=== PATIENT | female | born 1955 | race Caucasian/White ===

== ENCOUNTER 2022-03-22 20:14 | Outpatient (CLI) | payer OTHER | END 2022-03-22 23:59 | disposition critical access hospital (66) | LOC: EMS 20:14 | DX: M25.512 Pain in left shoulder (principal); M79.622 Pain in left upper arm; S00.31XA Abrasion of nose, initial encounter; S00.83XA Contusion of other part of head, initial encounter; W10.8XXA Fall (on) (from) other stairs and steps, initial encounter; Y92.008 Other place in unspecified non-institutional (private) residence as the place of occurrence of the external cause | CPT/HCPCS: A0425; A0429 ==

== ENCOUNTER 2022-03-22 20:28 | Emergency (ER) | payer MEDICARE, OTHER ==
[2022-03-22] MEDS ORDERED: HYDROcod/ACETAM 5/325 MG TABLET PO STA (20:42)
--- NOTE | 2022-03-22 20:42 | ED Physician Documentation ---
History of Present Illness - Stated complaint Stated Complaint: FELL - Chief complaint Chief Complaint: Ext Problem - History obtained from History obtained from: Patient, EMS - Additonal information Additional information: The patient comes to the emergency department via EMS for chief complaint of left shoulder pain after ground-level fall. The patient states that she was taking her son to town and had just returned in her car. She was walking into the house when she tripped over a step and fell. She does not remember hitting her head but is pretty sure she was awake the whole time. Her only complaint at this point in time is left shoulder pain. No neck pain. No rib pain. No abdominal or pelvic pain. The medics state that when they got there, she was laying on the ground, but they were able to help her up and she was able to walk on her own without any pain in her hips. The patient denies any other complaints at this time. She states that shoulder pain is new since the fall. PD PAST MEDICAL HISTORY - Present Medications Home Medications: Ambulatory Orders Medication Instructions Recorded Confirmed No Known Home Medications 03/22/22 03/22/22 - Allergies Allergies/Adverse Reactions: Allergies Allergy/AdvReac Type Severity Reaction Status Date / Time No Known Drug Allergies Allergy Verified 03/22/22 20:37 PD ED PE NORMAL - Vitals Vital signs reviewed: Yes - General General: Alert and oriented X 3, No acute distress, Well developed/nourished, Other (Morbidly obese patient who appears uncomfortable but otherwise in no apparent distress.) - HEENT HEENT: PERRL, EOMI, Moist mucous membranes, Other (Abrasion over nasal bridge, no deformity. No epistaxis. No facial swelling or contusion.) - Neck Neck: Supple, no meningeal sign, No bony TTP - Cardiac Cardiac: RRR, No murmur, Strong equal pulses - Respiratory Respiratory: No respiratory distress, Clear bilaterally - Abdomen Abdomen: Soft, Non tender, Other (Obese) - Derm Derm: Normal color, Warm and dry, No rash, Other (Abrasion over nasal bridge) - Extremities Extremities: No deformity, Other (Moderately limited range of motion of left shoulder secondary to pain. No deformity. No edema.) - Neuro Neuro: Alert and oriented X 3, mime artist 2-12 intact, Normal speech - Psych Psych: Normal mood, Normal affect Results - Vitals Vitals: Vital Signs - 24 hr 03/22/22 03/22/22 03/22/22 20:34 20:37 20:52 Temperature 36.0 C L Heart Rate 80 76 79 Respiratory 21 18 21 Rate Blood Pressure 174/122 H O2 Saturation 93 97 03/22/22 22:05 Temperature Heart Rate 82 Respiratory 16 Rate Blood Pressure O2 Saturation 94 Oxygen O2 Source Room air - Rads (name of study) Left shoulder x-ray series Radiology: Final report received, See rad report (Anterior-inferior dislocation. No fracture.) CT head Radiology: Final report received, See rad report (Negative) PD Medical Decision Making - ED course Complexity details: reviewed results, re-evaluated patient, considered differential, d/w patient ED course: The patient was worked up with CT of the head and cervical spine, as well as x- ray series of the left shoulder, all of which were ordered and reviewed by me. The left shoulder x-ray series did show an anterior inferior dislocation without fracture. The CT of the head was negative. The patient was in need of reduction, but was a very difficult peripheral access. At the time of this dictation, nursing staff was still attempting to get an IV so the patient can be sedated. Patient was signed out to Dr. Melendez, pending reduction and final disposition.
--- NOTE | 2022-03-22 21:12 | XRAY Report ---
PROCEDURE: Shoulder 3 View LT INDICATIONS: pain after fall TECHNIQUE: 3 views of the shoulder were acquired. COMPARISON: None. FINDINGS: Suboptimal positioning secondary to patient condition. Bones: Anterior-inferior glenohumeral joint dislocation. No shoulder separation. No visible fractures . No suspicious bony lesions. Visualized ribs appear intact. Soft tissues: No suspicious soft tissue calcifications. IMPRESSION: Anterior-inferior glenohumeral joint dislocation without visible fracture. Reviewed by: Ca Weinstein MD on 03/22/2022 9:11 PM PST Approved by: Ca Weinstein MD on 03/22/2022 9:11 PM PST Station ID: [id number]
[2022-03-22] MEDS ORDERED: HYDROmorphone 1 MG/ML CARPUJECT IVP STA (22:01)
--- NOTE | 2022-03-22 22:04 | ED Physician Documentation ---
ED Addendum - Addendum Addendum: 03/22/22 23:16 Patient received a signout from off going physician, please see their d ocumentation for further detail. In short patient presents to the emergency department after mechanical fall with anterior dislocation to the left shoulder. CT head and C-spine reviewed, no acute traumatic injuries. Conferred with patient. She reported that her last p.o. intake was approximately 1600 hrs. Denied any history of previous complications with anesthesia. Procedural consent was signed for conscious sedation and reduction of her left anterior shoulder dislocation. Please see nursing documentation for more details. Patient was positioned appropriately. X-ray studies were available. She did demonstrate a Mallampati score of 2. Timeout was called. Patient identity was confirmed and all in attendance including myself, respiratory therapy, licensed registered nurse and operating room surgical technician were in agreement. 50 mg of propofol were administered intravenously. This was followed by a second dose of 30 mg of propofol in order to achieve adequate sedation. Direct traction with external rotation was applied to the left upper extremity with palpable pop and reduction. Respiratory therapy exit to the procedure room at that time and I and the registered nurse as well as the tech remained in attendance monitoring patient's airway and hemodynamics. Patient did have a brief episode of hypotension however this was improved on repeat and I am dubious that it represented true hypotension as there was no increase in heart rate or other indications of hemodynamic instability. X-ray performed at bedside demonstrated significant improvement and reduction to the left shoulder per my interpretation. Patient's neurovascular status was rechecked on multiple occasions after reduction and remained intact. Remained in attendance at bedside and pain until patient returned to an approp riate level of waking mentation and demonstrated clear ability to Protect her airway. X-ray read per radiology is in agreement with my initial interpretation and patient was provided with a shoulder sling. She was monitored in the emergency department for approximately 2-1/2 hours hours and then prepared for discharge with medication for pain control and encouragement to follow-up with primary c are. 03/23/22 03:19
--- NOTE | 2022-03-22 22:08 | CT Report ---
PROCEDURE: HEAD WO INDICATIONS: fall/head injury TECHNIQUE: Noncontrast 4.5 mm thick angled axial sections acquired from the foramen magnum to the vertex. For r adiation dose reduction, the following was used: automated exposure control, adjustment of mA and/or kV according to patient size. COMPARISON: None. FINDINGS: Image quality: Suboptimal secondary to motion.. CSF spaces: Basal cisterns are patent. No extra-axial fluid collections. Ventricles are normal in size and shape. Brain: No midline shift. No intracranial masses or hemorrhage. Escalante-white matter interface is norm al. Skull and face: Calvarium and visualized facial bones are intact, without suspicious lesions. Sinuses: Visualized sinuses and mastoids are clear. IMPRESSION: 1. No CT evidence of acute head trauma. 2. No significant soft tissue injury visible. 3. No visible fractures, though quality is decreased due to motion. Reviewed by: Ca Weinstein MD on 03/22/2022 10:07 PM PST Approved by: Ca Weinstein MD on 03/22/2022 10:07 PM PST Station ID: [id number]
--- NOTE | 2022-03-22 22:13 | CT Report ---
PROCEDURE: CERVICAL SPINE WO INDICATIONS: fall/head injury TECHNIQUE: Noncontrast 3 mm thick sections acquired from the skull base to the T4 level. Sagittal and coronal r eformats were then constructed. For radiation dose reduction, the following was used: automated exp osure control, adjustment of mA and/or kV according to patient size. COMPARISON: None. FINDINGS: Image quality: Decreased due to body habitus.. Bones: No fractures or dislocations. Moderate multilevel degenerative disc height loss from C4 thro ugh C7 and mild anterior endplate spurs and posterior uncovertebral joint hypertrophy. There is facet arthropathy in the upper left cervical spine but no subluxation. There are moderate degenerative renee nges at the atlantodental interval. Visualized superior ribs are intact. Soft tissues: Retropharyngeal course of carotid vasculature. Prevertebral soft tissues are otherwise normal in thickness. No paravertebral hematomas. No apical pneumothoraces. IMPRESSION: 1. No CT evidence of acute cervical spine injury. 2. Moderate multilevel cervical degeneration. Reviewed by: Ca Weinstein MD on 03/22/2022 10:12 PM PST Approved by: Ca Weinstein MD on 03/22/2022 10:12 PM PST Station ID: [id number]
[2022-03-22] MEDS: PROPOFOL 200 MG/20 ML VIAL IVP STA ×2 (22:34→22:53)
--- NOTE | 2022-03-23 00:18 | XRAY Report ---
PROCEDURE: Shoulder 2 View LT INDICATIONS: dislocation TECHNIQUE: 2 views of the shoulder were acquired. COMPARISON: Films performed earlier the same evening FINDINGS: Bones: Successful reduction of left glenohumeral joint dislocation. No visible fracture. No suspiciou s bony lesions. Visualized ribs appear intact. Soft tissues: No suspicious soft tissue calcifications. IMPRESSION: Apparent reduction of left glenohumeral joint dislocation. Reviewed by: Ca Weinstein MD on 03/23/2022 12:28 AM PST Approved by: Ca Weinstein MD on 03/23/2022 12:28 AM PST Station ID: [id number]
[2022-03-23 01:47] VITALS: BP 166/88
== END 2022-03-23 01:46 | disposition home or self-care (01) ==
LOC: EDUNIT# → ED 20:28
DX: S43.085A Other dislocation of left shoulder joint, initial encounter (principal); W01.0XXA Fall on same level from slipping, tripping and stumbling without subsequent striking against object, initial encounter; Y93.01 Activity, walking, marching and hiking; Y92.009 Unspecified place in unspecified non-institutional (private) residence as the place of occurrence of the external cause
CPT/HCPCS: 23650; 70450; 72125; 73030; 96374; 99152; 99283; 99284; A9270; J1170